=== PATIENT | female | born 1970 | race Hispanic/Latino ===

== ENCOUNTER 2021-06-17 11:04 | Emergency (ER) | payer SELFPAY ==
[~2021-06-17] VITALS: Ht 152.4 cm; Wt 127.0 kg
[2021-06-17 11:09] VITALS: BP 157/100
[2021-06-17] MEDS ORDERED: POLY10DR22 OU (11:26)
== END 2021-06-17 11:35 | disposition home or self-care (01) ==
LOC: EDH 11:04
DX: H10.9 Unspecified conjunctivitis (principal)

== ENCOUNTER 2022-01-02 17:07 | Emergency (ER) | payer OTHER ==
[~2022-01-02 17:07] MED LIST: BISA5TAB12 PO; DOCU100T PO; LACT10SO9 PO; MULT-685 PO; Midodrine Hcl PO; POLY17PO4 PO; PROM25TA7 PO; SENN8.6T32 PO
[2022-01-02 18:34] LABS: BASOPHILS % (AUTO) 0.5 % (0.0-5.0); EOSINOPHILS % (AUTO) 2.3 % (0.0-8.0); HEMATOCRIT 31.7 % (36-48); LYMPHOCYTES % (AUTO) 20.4 % (21.0-51.0); MEAN CORPUSCULAR HEMOGLOBIN 27.1 pg (27.0-33.0); MEAN CORPUSCULAR HGB CONC 31.2 g/dL (32.0-36.0); MEAN CORPUSCULAR VOLUME 86.8 fL (79-99); MONOCYTES % (AUTO) 3.5 % (3.0-13.0); NEUTROPHILS % (AUTO) 72.6 % (40.0-77.0); PLATELET COUNT (AUTO) 331 K/uL (130-400); RED BLOOD CELL COUNT(AUTO) 3.65 MIL/uL (4.00-5.50); RED CELL DISTRIBUTION WIDTH 16.4 % (11.0-15.5); WHITE BLOOD COUNT (AUTO) 11.7 K/uL (4.8-10.8)
[2022-01-02 18:53] LABS: CREATININE 5.7 mg/dL (0.5-1.5); POTASSIUM 3.6 mmol/L (3.5-5.1)
[2022-01-02 19:03] LABS: ALBUMIN 2.8 g/dL (3.5-5.0); BILIRUBIN,TOTAL 0.3 mg/dL (0.2-1.0); TOTAL PROTEIN, SERUM 7.2 g/dL (6.0-8.3)
[2022-01-02 19:35] VITALS: BP 18/72
[2022-01-02] MEDS ORDERED: DOXY-336 PO (19:43)
== END 2022-01-02 20:39 | disposition home or self-care (01) ==
LOC: EDH 17:07
DX: J18.9 Pneumonia, unspecified organism (principal); E87.70 Fluid overload, unspecified; I12.0 Hypertensive chronic kidney disease with stage 5 chronic kidney disease or end stage renal disease; N18.6 End stage renal disease; Z20.822 Contact with and (suspected) exposure to COVID-19; Z99.2 Dependence on renal dialysis
CPT/HCPCS: 36415; 71045; 80053; 83880; 84484; 85025; 87635; 93005; 99285; C9803

== ENCOUNTER 2022-12-16 09:33 | Emergency (ER) | payer MEDICAID, OTHER ==
[~2022-12-16] VITALS: Ht 157.5 cm; Wt 119.3 kg
[~2022-12-16 09:33] MED LIST changes: +BISA-151 PO; -BISA5TAB12 PO; +DOXY-469 PO
[2022-12-16] MEDS ORDERED: CEFTRIAXONE 1G VIAL IVPB ONE (10:00)
[2022-12-16] MEDS ORDERED: SOLU-MEDROL 125MG VIAL IVP ONE (10:00)
[2022-12-16] MEDS ORDERED: ALBUTEROL 0.083% 2.5 MG/3 ML INH IH ONE (10:00)
[2022-12-16] MEDS ORDERED: IPRATROPIUM 0.5 MG/2.5 ML INH IH ONE (10:00)
[2022-12-16 10:10] LABS: BASOPHILS % (AUTO) 0.7 % (0.0-5.0); EOSINOPHILS % (AUTO) 6.8 % (0.0-8.0); HEMATOCRIT 44.9 % (36-48); LYMPHOCYTES % (AUTO) 24.2 % (21.0-51.0); MEAN CORPUSCULAR HEMOGLOBIN 28.4 pg (27.0-33.0); MEAN CORPUSCULAR HGB CONC 32.5 g/dL (32.0-36.0); MEAN CORPUSCULAR VOLUME 87.4 fL (79-99); MONOCYTES % (AUTO) 7.1 % (3.0-13.0); NEUTROPHILS % (AUTO) 60.6 % (40.0-77.0); PLATELET COUNT (AUTO) 326 K/uL (130-400); RED BLOOD CELL COUNT(AUTO) 5.14 MIL/uL (4.00-5.50); RED CELL DISTRIBUTION WIDTH 13.7 % (11.0-15.5); WHITE BLOOD COUNT (AUTO) 8.7 K/uL (4.8-10.8)
[2022-12-16 10:38] LABS: ALBUMIN 3.3 g/dL (3.5-5.0); CREATININE 1.5 mg/dL (0.5-1.5); POTASSIUM 3.8 mmol/L (3.5-5.1); TOTAL PROTEIN, SERUM 7.7 g/dL (6.0-8.3)
[2022-12-16] MEDS ORDERED: AZIT250T9 PO (11:14)
[2022-12-16] MEDS ORDERED: PRED50TA2 PO (11:14)
[2022-12-16] MEDS ORDERED: AUD IH (11:14)
[2022-12-16] MEDS ORDERED: ALBUHFA IH (11:14)
[2022-12-16] MEDS ORDERED: [UNRECOGNIZED DRUG - CODE] MC (11:14)
[2022-12-16] MEDS ORDERED: LEVO750T68 PO (11:14)
[2022-12-16 11:33] VITALS: BP 144/86
== END 2022-12-16 11:42 | disposition home or self-care (01) ==
LOC: EDH 09:33
DX: J18.9 Pneumonia, unspecified organism (principal); J40 Bronchitis, not specified as acute or chronic; I10 Essential (primary) hypertension; Z98.890 Other specified postprocedural states; Z79.899 Other long term (current) drug therapy; Z90.5 Acquired absence of kidney
CPT/HCPCS: 99284; 96365; 71045; 96375; 80053; 85025; 87040 ×2; 83605; 36415; 94640; J2930; J0696

== ENCOUNTER 2022-12-30 10:50 | Observation (INO) | payer OTHER ==
[~2022-12-30] VITALS: Ht 152.4 cm; Wt 119.3 kg
[~2022-12-30 10:50] MED LIST changes: +ALBUHFA IH; +AUD IH; +AZIT250T9 PO; +LEVO750T68 PO; +PRED50TA2 PO; +[UNRECOGNIZED DRUG - CODE] MC
[2022-12-30] MEDS ORDERED: ACETAMINOPHEN 500 MG TABLET PO ONE (11:30)
[2022-12-30 12:35] LABS: BASOPHILS % (AUTO) 0.6 % (0.0-5.0); EOSINOPHILS % (AUTO) 4.6 % (0.0-8.0); HEMATOCRIT 44.5 % (36-48); LYMPHOCYTES % (AUTO) 20.6 % (21.0-51.0); MEAN CORPUSCULAR HEMOGLOBIN 29.1 pg (27.0-33.0); MEAN CORPUSCULAR HGB CONC 32.1 g/dL (32.0-36.0); MEAN CORPUSCULAR VOLUME 90.4 fL (79-99); MONOCYTES % (AUTO) 6.5 % (3.0-13.0); NEUTROPHILS % (AUTO) 67.3 % (40.0-77.0); PLATELET COUNT (AUTO) 306 K/uL (130-400); RED BLOOD CELL COUNT(AUTO) 4.92 MIL/uL (4.00-5.50); RED CELL DISTRIBUTION WIDTH 13.4 % (11.0-15.5); WHITE BLOOD COUNT (AUTO) 9.3 K/uL (4.8-10.8)
[2022-12-30 12:51] LABS: CREATININE 1.6 mg/dL (0.5-1.5); POTASSIUM 4.1 mmol/L (3.5-5.1)
[2022-12-30 12:56] LABS: ALBUMIN 3.2 g/dL (3.5-5.0); TOTAL PROTEIN, SERUM 7.4 g/dL (6.0-8.3)
[2022-12-30] MEDS ORDERED: 0.9%NACL 1000ML 2,000 ML IV ONE (13:30)
[2022-12-30] MEDS ORDERED: ONDANSETRON 4MG INJ IV PRN (14:00)
[2022-12-30] MEDS ORDERED: 0.9%NACL 1000ML 1,000 ML IV SCH (14:00)
[2022-12-30] MEDS ORDERED: ACETAMINOPHEN 325 MG TAB PO PRN ×2 (14:00)
[2022-12-30] MEDS ORDERED: HEPARIN 5,000 UNIT VIAL SQ SCH (14:00)
[2022-12-30] MEDS ORDERED: PROC5TAB12 PO (14:18)
[2022-12-30] MEDS ORDERED: ACET-2247 PO (14:18)
[2022-12-30] MEDS ORDERED: DIPH-1185 PO (14:18)
[2022-12-30 14:35] LABS: ALBUMIN 3.3 g/dL (3.5-5.0); CREATININE 1.6 mg/dL (0.5-1.5); POTASSIUM 4.4 mmol/L (3.5-5.1); TOTAL PROTEIN, SERUM 7.5 g/dL (6.0-8.3)
[2022-12-30 14:36] VITALS: BP 146/86
[2022-12-30] MEDS ORDERED: FAMOTIDINE 20MG TAB PO SCH (21:00)
== END 2022-12-30 16:41 | disposition home or self-care (01) ==
LOC: EDH 10:50 → EDHIP 10:51
PROVIDERS: ADMIT Hospitalist; ATTEND Hospitalist
DX: N17.9 Acute kidney failure, unspecified (principal); I13.0 Hypertensive heart and chronic kidney disease with heart failure and stage 1 through stage 4 chronic kidney disease, or unspecified chronic kidney disease; I50.32 Chronic diastolic (congestive) heart failure; N18.9 Chronic kidney disease, unspecified; G43.909 Migraine, unspecified, not intractable, without status migrainosus; J84.10 Pulmonary fibrosis, unspecified; Z90.5 Acquired absence of kidney; Z79.899 Other long term (current) drug therapy
CPT/HCPCS: 99284; 80053 ×2; 85025; 83605; 36415; 71045; 70450; G0378 ×3

== ENCOUNTER 2023-03-05 10:38 | Emergency (ER) | payer OTHER ==
[~2023-03-05] VITALS: Ht 154.9 cm; Wt 75.7 kg
[~2023-03-05 10:38] MED LIST changes: +ACET-2247 PO; -ALBUHFA IH; -AUD IH; -AZIT250T9 PO; -BISA-151 PO; +DIPH-1185 PO; -DOCU100T PO; -DOXY-469 PO; -LACT10SO9 PO; -LEVO750T68 PO; -MULT-685 PO; -Midodrine Hcl PO; -POLY17PO4 PO; -PRED50TA2 PO; +PROC5TAB12 PO; -PROM25TA7 PO; -SENN8.6T32 PO
[2023-03-05 10:57] VITALS: BP 164/96; PULSE 70; RESP 24
[2023-03-05 13:18] LABS: BASOPHILS # (AUTO) 0.07 K/uL (0.00-0.20); BASOPHILS % (AUTO) 0.7 % (0.0-5.0); EOSINOPHILS # (AUTO) 0.47 K/uL (0.00-0.70); EOSINOPHILS % (AUTO) 4.6 % (0.0-8.0); HEMATOCRIT 47.9 % (36-48); IMMATURE GRANULOCYTE ABSOLUTE 0.04 K/uL (0-1); LYMPHOCYTES # (AUTO) 2.4 K/uL (1.0-4.8); LYMPHOCYTES % (AUTO) 23.2 % (21.0-51.0); MEAN CORPUSCULAR HEMOGLOBIN 28.4 pg (27.0-33.0); MEAN CORPUSCULAR HGB CONC 32.6 g/dL (32.0-36.0); MEAN CORPUSCULAR VOLUME 87.2 fL (79-99); MONOCYTES # (AUTO) 0.7 K/uL (0.1-1.0); MONOCYTES % (AUTO) 6.5 % (3.0-13.0); NEUTROPHILS # (AUTO) 6.5 K/uL (1.8-7.7); NEUTROPHILS % (AUTO) 64.6 % (40.0-77.0); PLATELET COUNT (AUTO) 325 K/uL (130-400); RED BLOOD CELL COUNT(AUTO) 5.49 MIL/uL (4.00-5.50); RED CELL DISTRIBUTION WIDTH 12.5 % (11.0-15.5); WHITE BLOOD COUNT (AUTO) 10.1 K/uL (4.8-10.8)
[2023-03-05 13:27] LABS: CREATININE 1.8 mg/dL (0.5-1.5); POTASSIUM 3.9 mmol/L (3.5-5.1)
[2023-03-05 13:31] LABS: ALBUMIN 3.6 g/dL (3.5-5.0); BILIRUBIN,TOTAL 0.4 mg/dL (0.2-1.0); TOTAL PROTEIN, SERUM 8.2 g/dL (6.0-8.3)
[2023-03-05 14:55] LABS: APPEARANCE,URINE CLEAR (CLEAR); BILIRUBIN,URINE NEGATIVE (NEGATIVE); COLOR,URINE LIGHT-YELLOW (YELLOW); GLUCOSE, URINE (UA) NEGATIVE (NEGATIVE); KETONES,URINE NEGATIVE (NEGATIVE); LEUKOCYTE ESTERASE ,URINE 250 Leu/uL (NEGATIVE); NITRATE,URINE NEGATIVE (NEGATIVE); PROTEIN,URINE 300 mg/dL (NEGATIVE); UROBILINOGEN,URINE 0.2 mg/dL (0.2-1.0)
[2023-03-05 14:56] LABS: ADD UA MICROSCOPIC YES
[2023-03-05 15:04] LABS: BACTERIA,URINE RARE /HPF (None Seen); MUCUS,URINE RARE LPF (None Seen); SQUAMOUS EPITHELIAL CELL,UR FEW /HPF (0-2)
[2023-03-05] MEDS ORDERED: CEPH500B PO (17:32)
== END 2023-03-05 21:24 | disposition home or self-care (01) ==
LOC: EDH 10:38
DX: N39.0 Urinary tract infection, site not specified (principal); I10 Essential (primary) hypertension; J45.909 Unspecified asthma, uncomplicated; J84.10 Pulmonary fibrosis, unspecified; Z90.5 Acquired absence of kidney; Z79.899 Other long term (current) drug therapy; Z98.890 Other specified postprocedural states
CPT/HCPCS: 36415; 71045; 80053; 81001; 83605; 84484; 85025; 87088; 93005

== ENCOUNTER 2023-08-08 15:41 | Emergency (ER) | payer OTHER ==
[~2023-08-08] VITALS: Ht 152.4 cm; Wt 117.5 kg
[~2023-08-08 15:41] MED LIST changes: +CEPH500B PO
[2023-08-08 15:52] VITALS: PULSE 71; RESP 24
[2023-08-08] MEDS ORDERED: ALBUTEROL 0.083% 2.5 MG/3 ML INH IH ONE (16:00)
[2023-08-08 16:15] LABS: BASOPHILS # (AUTO) 0.06 K/uL (0.00-0.20); BASOPHILS % (AUTO) 0.6 % (0.0-5.0); EOSINOPHILS # (AUTO) 0.52 K/uL (0.00-0.70); EOSINOPHILS % (AUTO) 4.9 % (0.0-8.0); HEMATOCRIT 40.6 % (36-48); IMMATURE GRANULOCYTE ABSOLUTE 0.04 K/uL (0-1); LYMPHOCYTES # (AUTO) 2.1 K/uL (1.0-4.8); LYMPHOCYTES % (AUTO) 20.1 % (21.0-51.0); MEAN CORPUSCULAR HEMOGLOBIN 28.4 pg (27.0-33.0); MEAN CORPUSCULAR HGB CONC 33.7 g/dL (32.0-36.0); MEAN CORPUSCULAR VOLUME 84.2 fL (79-99); MONOCYTES # (AUTO) 0.7 K/uL (0.1-1.0); MONOCYTES % (AUTO) 6.5 % (3.0-13.0); NEUTROPHILS # (AUTO) 7.2 K/uL (1.8-7.7); NEUTROPHILS % (AUTO) 67.5 % (40.0-77.0); PLATELET COUNT (AUTO) 331 K/uL (130-400); RED BLOOD CELL COUNT(AUTO) 4.82 MIL/uL (4.00-5.50); RED CELL DISTRIBUTION WIDTH 13.2 % (11.0-15.5); WHITE BLOOD COUNT (AUTO) 10.6 K/uL (4.8-10.8)
[2023-08-08 16:32] LABS: CREATININE 1.9 mg/dL (0.5-1.5); POTASSIUM 4.2 mmol/L (3.5-5.1)
[2023-08-08 16:43] LABS: ALBUMIN 3.1 g/dL (3.5-5.0); BILIRUBIN,TOTAL 0.3 mg/dL (0.2-1.0); MAGNESIUM 2.1 mg/dL (1.80-2.40); TOTAL PROTEIN, SERUM 7.8 g/dL (6.0-8.3)
[2023-08-08 16:53] LABS: B-TYPE NATRIURETIC PEPTIDE 84 pg/mL (0-100)
[2023-08-08] MEDS ORDERED: SOLU-MEDROL 125MG VIAL IVP ONE (17:00)
[2023-08-08] MEDS ORDERED: IPRATROPIUM/ALBUTEROL SULFATE 3 ML SOLUTION IH ONE (18:30)
[2023-08-08 18:50] VITALS: PULSE 69; RESP 18
[2023-08-08] MEDS ORDERED: GUAI5LIQ13 PO (19:24)
[2023-08-08] MEDS ORDERED: ALBUHFA IH (19:24)
[2023-08-08] MEDS ORDERED: AMOX1TAB16 PO (19:24)
[2023-08-08] MEDS ORDERED: NEBU-305 MC (19:24)
[2023-08-08] MEDS ORDERED: BUDE10.2 IH (19:24)
[2023-08-08] MEDS ORDERED: PRED20TA3 PO (19:24)
[2023-08-08] MEDS ORDERED: AUD IH (19:24)
[2023-08-08 20:43] VITALS: BP 148/76; PULSE 78; RESP 19; O2SAT 97
== END 2023-08-08 20:46 | disposition home or self-care (01) ==
LOC: EDH 15:41
DX: J84.112 Idiopathic pulmonary fibrosis (principal); I10 Essential (primary) hypertension; Z79.899 Other long term (current) drug therapy; Z98.890 Other specified postprocedural states
CPT/HCPCS: 99285; 96374; 71045; 83735; 84484; 80053; 83880; 85025; 36415; 93005; 94640 ×2; J2930

== ENCOUNTER 2024-02-02 08:55 | Inpatient (IN) | payer OTHER ==
[2024-02-02] VITALS (7 sets, daily range): BP systolic 143; BP diastolic 62; PULSE 62–82; RESP 16–26; O2SAT 95–99
[~2024-02-02] VITALS: Ht 160 cm; Wt 117.9 kg
[~2024-02-02 08:55] MED LIST changes: -ACET-2247 PO; +AUD IH; +BUDE10.2 IH; -CEPH500B PO; +GUAI5LIQ13 PO; +NEBU-305 MC; +PRED20TA3 PO; -[UNRECOGNIZED DRUG - CODE] MC
[2024-02-02 09:21] LABS: ABG BASE EXCESS -3.2 mmol/L (-2.0-3.0); ABG HCO3 21.3 mmol/L (21.0-28.0); ABG PCO2 37 mmHg (32-45); ABG PH 7.379 (7.35-7.450); DEVICE COMMENT VERO RN LB; PO2, ARTERIAL BG 75.8 mmHg (83.0-108.0); VENT MODE, BG RA (ROOM AIR)
[2024-02-02] MEDS: IPRATROPIUM/ALBUTEROL SULFATE 3 ML SOLUTION IH ONE ×2 (09:24→09:30)
[2024-02-02] MEDS: SOLU-MEDROL 125MG VIAL IVP ONE (09:28)
[2024-02-02 09:39] LABS: BASOPHILS # (AUTO) 0.05 K/uL (0.00-0.20); BASOPHILS % (AUTO) 0.5 % (0.0-5.0); EOSINOPHILS # (AUTO) 0.49 K/uL (0.00-0.70); EOSINOPHILS % (AUTO) 4.9 % (0.0-8.0); HEMATOCRIT 42.1 % (36-48); IMMATURE GRANULOCYTE ABSOLUTE 0.05 K/uL (0-1); LYMPHOCYTES % (AUTO) 20.2 % (21.0-51.0); MEAN CORPUSCULAR HEMOGLOBIN 27.7 pg (27.0-33.0); MEAN CORPUSCULAR HGB CONC 32.1 g/dL (32.0-36.0); MEAN CORPUSCULAR VOLUME 86.4 fL (79-99); MONOCYTES # (AUTO) 0.6 K/uL (0.1-1.0); MONOCYTES % (AUTO) 6.1 % (3.0-13.0); NEUTROPHILS # (AUTO) 6.8 K/uL (1.8-7.7); NEUTROPHILS % (AUTO) 67.8 % (40.0-77.0); PLATELET COUNT (AUTO) 322 K/uL (130-400); RED BLOOD CELL COUNT(AUTO) 4.87 MIL/uL (4.00-5.50); RED CELL DISTRIBUTION WIDTH 12.9 % (11.0-15.5)
[2024-02-02 09:42] LABS: CREATININE 1.9 mg/dL (0.5-1.0); POTASSIUM 3.9 mmol/L (3.5-5.1)
[2024-02-02 10:06] LABS: SARS-CoV-2, RNA, NAAT NEGATIVE SARS CoV-2 (NEGATIVE)
[2024-02-02 10:11] LABS: INFLUENZA TYPE A Negative For Type A (NEGATIVE); INFLUENZA TYPE B Negative For Type B (NEGATIVE)
[2024-02-02 10:17] LABS: B-TYPE NATRIURETIC PEPTIDE 59 pg/mL (0-100)
[2024-02-02] MEDS: ALBUTEROL 0.083% 2.5 MG/3 ML INH IH ONE (12:18)
[2024-02-02] MEDS ORDERED: IPRATROPIUM/ALBUTEROL SULFATE 3 ML SOLUTION IH PRN (12:30)
[2024-02-02] MEDS ORDERED: ACETAMINOPHEN 325 MG TAB PO PRN (12:30)
[2024-02-02] MEDS ORDERED: ONDANSETRON 4MG INJ IVP PRN (12:30)
[2024-02-02] MEDS: SOLU-MEDROL 40MG VIAL IVP SCH (13:03)
[2024-02-02] MEDS: AZITHROMYCIN 500MG+NS 250ML 250 ML IVPB SCH (13:04)
[2024-02-02] MEDS ORDERED: ZOSYN 3.375GM +NS 50ML IV SCH (15:00)
[2024-02-02] MEDS: RACEPINEPHRINE HCL 2.25% 0.5 ML NEB SOLN ONE (15:20)
[2024-02-02] MEDS: RACEPINEPHRINE HCL 2.25% 0.5 ML NEB SOLN NEB SCH (15:30)
[2024-02-02] MEDS ORDERED: POTASSIUM CHLORIDE 10MEQ/100ML 100 ML IV PRN ×2 (17:00)
[2024-02-02] MEDS ORDERED: KCL 20 MEQ ERTAB PO PRN (17:00)
[2024-02-02] MEDS ORDERED: POTASSIUM CHLORIDE 10% ELIXIR 20 MEQ/15 ML UDCUP PO PRN (17:00)
[2024-02-02] MEDS ORDERED: FOLI0.8T22 PO (17:42)
[2024-02-02] MEDS ORDERED: TORS10TA18 PO (17:42)
[2024-02-02] MEDS: BUDESONIDE 0.5 MG/2 ML INH IH SCH (20:39)
[2024-02-02] MEDS: ALBUTEROL 0.083% 2.5 MG/3 ML INH IH SCH (20:39)
[2024-02-03] VITALS (14 sets, daily range): BP systolic 124–144; BP diastolic 62–76; PULSE 63–90; RESP 18–21; O2SAT 95–100
[2024-02-03 03:17] LABS: ABG BASE EXCESS -3.1 mmol/L (-2.0-3.0); ABG HCO3 22.2 mmol/L (21.0-28.0); ABG OXYGEN SATURATION 95.9 % (95.0-99.0); ABG PCO2 41 mmHg (32-45); ABG PH 7.355 (7.35-7.450); DEVICE COMMENT RA; VENT MODE, BG LR RA (ROOM AIR)
[2024-02-03 04:45] LABS: BASOPHILS # (AUTO) 0.01 K/uL (0.00-0.20); BASOPHILS % (AUTO) 0.1 % (0.0-5.0); HEMATOCRIT 39.5 % (36-48); IMMATURE GRANULOCYTE ABSOLUTE 0.06 K/uL (0-1); LYMPHOCYTES # (AUTO) 0.7 K/uL (1.0-4.8); MEAN CORPUSCULAR HEMOGLOBIN 28.2 pg (27.0-33.0); MEAN CORPUSCULAR HGB CONC 32.4 g/dL (32.0-36.0); MONOCYTES # (AUTO) 0.1 K/uL (0.1-1.0); NEUTROPHILS # (AUTO) 12.1 K/uL (1.8-7.7); NEUTROPHILS % (AUTO) 93.4 % (40.0-77.0); PLATELET COUNT (AUTO) 319 K/uL (130-400); RED BLOOD CELL COUNT(AUTO) 4.54 MIL/uL (4.00-5.50); WHITE BLOOD COUNT (AUTO) 12.9 K/uL (4.8-10.8)
[2024-02-03 05:09] LABS: ALBUMIN 3.1 g/dL (3.5-5.0); BILIRUBIN,TOTAL 0.3 mg/dL (0.2-1.0); CREATININE 2.1 mg/dL (0.5-1.0); POTASSIUM 4.4 mmol/L (3.5-5.1)
[2024-02-03 06:09] LABS: WBC MORPHOLOGY CONSISTENT W/DIFF
[2024-02-03] MEDS: CEFEPIME HCL 2 GM VIAL IVPB SCH (13:00)
[2024-02-04] VITALS (15 sets, daily range): BP systolic 124–151; BP diastolic 62–99; PULSE 58–74; RESP 17–22; O2SAT 94–99
[2024-02-04 05:23] LABS: BASOPHILS # (AUTO) 0.02 K/uL (0.00-0.20); BASOPHILS % (AUTO) 0.1 % (0.0-5.0); HEMATOCRIT 40.7 % (36-48); IMMATURE GRANULOCYTE ABSOLUTE 0.18 K/uL (0-1); LYMPHOCYTES # (AUTO) 0.9 K/uL (1.0-4.8); LYMPHOCYTES % (AUTO) 4.8 % (21.0-51.0); MEAN CORPUSCULAR HEMOGLOBIN 28.4 pg (27.0-33.0); MEAN CORPUSCULAR HGB CONC 32.4 g/dL (32.0-36.0); MEAN CORPUSCULAR VOLUME 87.7 fL (79-99); MONOCYTES # (AUTO) 0.2 K/uL (0.1-1.0); MONOCYTES % (AUTO) 1.2 % (3.0-13.0); NEUTROPHILS # (AUTO) 17.2 K/uL (1.8-7.7); NEUTROPHILS % (AUTO) 92.9 % (40.0-77.0); PLATELET COUNT (AUTO) 336 K/uL (130-400); RED BLOOD CELL COUNT(AUTO) 4.64 MIL/uL (4.00-5.50); RED CELL DISTRIBUTION WIDTH 13.1 % (11.0-15.5); WHITE BLOOD COUNT (AUTO) 18.5 K/uL (4.8-10.8)
[2024-02-04 05:39] LABS: ALBUMIN 2.9 g/dL (3.5-5.0); BILIRUBIN,TOTAL 0.2 mg/dL (0.2-1.0); MAGNESIUM 1.9 mg/dL (1.80-2.40); POTASSIUM 4.6 mmol/L (3.5-5.1); TOTAL PROTEIN, SERUM 6.8 g/dL (6.0-8.3)
[2024-02-04] MEDS: CEFEPIME HCL 2 GM VIAL IVPB SCH (09:30)
[2024-02-04] MEDS: MAGNESIUM 2GM PREMIX 50ML 50 ML IV PRN (17:51)
[2024-02-05] VITALS (13 sets, daily range): BP systolic 130–160; BP diastolic 73–96; PULSE 58–72; RESP 18–20; O2SAT 96–97
[2024-02-05] MEDS: LABETALOL 20MG SYG IV ONE (11:00)
[2024-02-05] MEDS ORDERED: POTASSIUM CHLORIDE 10MEQ SR TAB PO PRN (12:30)
[2024-02-06] VITALS (8 sets, daily range): BP systolic 129–151; BP diastolic 57–77; PULSE 20–68; RESP 17–20; O2SAT 65–98
[2024-02-06] MEDS: PREDNISONE 20 MG TABLET PO SCH (07:55)
[2024-02-06] MEDS: TORSEMIDE 20 MG TAB PO SCH (07:55)
[2024-02-06] MEDS: Vitamin B Complex/Vit C/Folic Acid PO SCH (07:55)
[2024-02-06] MEDS ORDERED: NON-FORMULARY MEDICATION 1 EACH (Torsemide 10 MG) PO SCH (09:00)
[2024-02-06] MEDS ORDERED: NON-FORMULARY MEDICATION 1 EACH (Folic Acid/Vitamin B Comp W-C (Rena-Vite Tablet) 0.8 MG) PO SCH (09:00)
[2024-02-06] MEDS ORDERED: FOLI0.8T22 PO (13:50)
[2024-02-06] MEDS ORDERED: AZIT500T4 PO (13:50)
[2024-02-06] MEDS ORDERED: PRED20B PO (13:50)
[2024-02-06] MEDS ORDERED: TORS10TA18 PO (13:50)
[2024-02-06] MEDS ORDERED: AUD IH (13:50)
[2024-02-06] MEDS ORDERED: BUDE0.5A3 IH (13:50)
== END 2024-02-06 14:50 | disposition home or self-care (01) | DRG 189 ==
LOC: EDH 08:55 → EDHIP 08:56 → 4CH 18:40
PROVIDERS: ADMIT Hospitalist; ATTEND Hospitalist
DX: J96.21 Acute and chronic respiratory failure with hypoxia (principal); N17.9 Acute kidney failure, unspecified; Z68.43 Body mass index [BMI] 50.0-59.9, adult; J45.901 Unspecified asthma with (acute) exacerbation; Z20.822 Contact with and (suspected) exposure to COVID-19; E66.01 Morbid (severe) obesity due to excess calories; J03.90 Acute tonsillitis, unspecified; N18.9 Chronic kidney disease, unspecified; I12.9 Hypertensive chronic kidney disease with stage 1 through stage 4 chronic kidney disease, or unspecified chronic kidney disease; J84.112 Idiopathic pulmonary fibrosis; Z90.5 Acquired absence of kidney; Z93.0 Tracheostomy status
CPT/HCPCS: 36415; 36600; 70490; 71045; 71250; 80048; 80053; 82803; 82948; 83735; 83880; 84145; 84484; 85025; 87635; 87804; 87880; 94640; 94664; 99291; G0378; J0456; J0692; J2919; J3475; G8980-CI; G8983-CI

== ENCOUNTER 2024-04-27 08:14 | Inpatient (IN) | payer SELFPAY ==
[~2024-04-27] VITALS: Ht 154.9 cm; Wt 118.5 kg
[2024-04-27] VITALS (11 sets, daily range): BP systolic 150–166; BP diastolic 74–90; PULSE 67–77; RESP 18–21; TEMP 98.1–98.4; O2SAT 97–99
[~2024-04-27 08:14] MED LIST changes: +AZIT500T4 PO; +BUDE0.5A3 IH; -BUDE10.2 IH; -DIPH-1185 PO; +FOLI0.8T22 PO; -GUAI5LIQ13 PO; -NEBU-305 MC; +PRED20B PO; -PRED20TA3 PO; -PROC5TAB12 PO; +TORS10TA18 PO
[2024-04-27 08:35] LABS: BASOPHILS # (AUTO) 0.05 K/uL (0.00-0.20); BASOPHILS % (AUTO) 0.5 % (0.0-5.0); EOSINOPHILS # (AUTO) 0.52 K/uL (0.00-0.70); EOSINOPHILS % (AUTO) 5.6 % (0.0-8.0); HEMATOCRIT 44.4 % (36-48); IMMATURE GRANULOCYTE ABSOLUTE 0.06 K/uL (0-1); LYMPHOCYTES # (AUTO) 2.2 K/uL (1.0-4.8); LYMPHOCYTES % (AUTO) 23.8 % (21.0-51.0); MEAN CORPUSCULAR HGB CONC 32.4 g/dL (32.0-36.0); MEAN CORPUSCULAR VOLUME 86.2 fL (79-99); MONOCYTES # (AUTO) 0.6 K/uL (0.1-1.0); MONOCYTES % (AUTO) 6.8 % (3.0-13.0); NEUTROPHILS # (AUTO) 5.9 K/uL (1.8-7.7); NEUTROPHILS % (AUTO) 62.7 % (40.0-77.0); PLATELET COUNT (AUTO) 330 K/uL (130-400); RED BLOOD CELL COUNT(AUTO) 5.15 MIL/uL (4.00-5.50); RED CELL DISTRIBUTION WIDTH 12.5 % (11.0-15.5); WHITE BLOOD COUNT (AUTO) 9.3 K/uL (4.8-10.8)
[2024-04-27] MEDS: Solu-medROL 125MG VIAL IVP ONE (08:47)
[2024-04-27 08:49] LABS: CREATININE 2.1 mg/dL (0.5-1.0); POTASSIUM 4.2 mmol/L (3.5-5.1)
[2024-04-27] MEDS: IpraTROPium/alBUTERol SULFATE 3 ML SOLUTION IH ONE ×2 (08:53→09:51)
[2024-04-27] MEDS: RACEPINEPHRINE HCL 2.25% 0.5 ML NEB SOLN NEB SCH (08:54)
[2024-04-27 09:02] LABS: SARS-CoV-2, RNA, NAAT NEGATIVE SARS CoV-2 (NEGATIVE)
[2024-04-27 09:08] LABS: B-TYPE NATRIURETIC PEPTIDE 52 pg/mL (0-100)
[2024-04-27 09:08] LABS: INFLUENZA TYPE A Negative For Type A (NEGATIVE); INFLUENZA TYPE B Negative For Type B (NEGATIVE)
[2024-04-27 09:14] LABS: ABG BASE EXCESS -3.6 mmol/L (-2.0-3.0); ABG HCO3 21.5 mmol/L (21.0-28.0); ABG OXYGEN SATURATION 96.5 % (94.0-98.0); ABG PCO2 39 mmHg (32-45); ABG PH 7.358 (7.350-7.450); CARBON MONOXIDE 0.4 % (0.5-1.5); HHb 3.5; PO2, ARTERIAL BG 85.3 mmHg (83.0-108.0); VENT MODE, BG NC (ROOM AIR)
[2024-04-27 10:19] LABS: APPEARANCE,URINE CLEAR (CLEAR); BILIRUBIN,URINE NEGATIVE (NEGATIVE); COLOR,URINE LIGHT-YELLOW (YELLOW); GLUCOSE, URINE (UA) NEGATIVE (NEGATIVE); KETONES,URINE NEGATIVE (NEGATIVE); LEUKOCYTE ESTERASE ,URINE NEGATIVE Leu/uL (NEGATIVE); NITRATE,URINE NEGATIVE (NEGATIVE); OCCULT BLOOD,URINE SMALL (NEGATIVE); PROTEIN,URINE 200 mg/dL (NEGATIVE); UROBILINOGEN,URINE 0.2 mg/dL (0.2-1.0)
[2024-04-27 10:23] LABS: ADD UA MICROSCOPIC YES
[2024-04-27 10:32] LABS: BACTERIA,URINE Rare /HPF (None Seen); RBC,URINE 0-1 /HPF (0-1); SQUAMOUS EPITHELIAL CELL,UR 0-2 /HPF (0-2); WBC,URINE 0-1 /HPF (0-1)
[2024-04-27] MEDS: AZITHROMYCIN 500MG+NS 250ML 250 ML IVPB SCH (10:59)
[2024-04-27] MEDS: cefTRIAXone 1G VIAL IVPB ONE (10:59)
[2024-04-27] MEDS ORDERED: Solu-medROL 40MG VIAL IVP SCH ×2 (11:30→16:30)
[2024-04-27] MEDS ORDERED: guaiFENesin-DM 200/20MG 10ML PO PRN (11:30)
[2024-04-27] MEDS ORDERED: PoTASSium chloRIDE 20MEQ ER 20 MEQ ERTAB PO PRN (11:30)
[2024-04-27] MEDS ORDERED: morPHINE 2 MG SYG IVP PRN (11:30)
[2024-04-27] MEDS ORDERED: PoTASSium chl 10% ELIXIR 20MEQ 20 MEQ/15 ML UDCUP PO PRN (11:30)
[2024-04-27] MEDS ORDERED: MAGNESIUM 2GM PREMIX 50ML 50 ML IV PRN (11:30)
[2024-04-27] MEDS ORDERED: GLUCAGON 1MG KIT 1 MG ML IM PRN (11:30)
[2024-04-27] MEDS ORDERED: hydrALAZine 20MG/ML VIAL IV PRN (11:30)
[2024-04-27] MEDS ORDERED: DEXTROSE 50%-WATER 50 ML DISP.SYRIN IV PRN (11:30)
[2024-04-27] MEDS ORDERED: NITROGLYCERIN 0.4 MG SL TAB SL PRN (11:30)
[2024-04-27] MEDS ORDERED: FAMOTIDINE 20MG VIAL IV PRN (11:30)
[2024-04-27] MEDS ORDERED: acetaMINOPHEN 325 MG TAB PO PRN (11:30)
[2024-04-27] MEDS: INSULIN humuLIN R 100 UNIT/ML 3ML SQ SCH (11:30)
[2024-04-27] MEDS ORDERED: acetaMINOPHEN WITH coDEINE 1 TAB TAB PO PRN (11:30)
[2024-04-27] MEDS ORDERED: PoTASSium chloRIDE 20MEQ/100ML 100 ML IV PRN (11:30)
[2024-04-27] MEDS ORDERED: ondanSETRON 4MG INJ IV PRN (11:30)
[2024-04-27] MEDS: IpraTROPium/alBUTERol SULFATE 3 ML SOLUTION IH SCH (12:18)
[2024-04-27] MEDS ORDERED: ALBUTEROL 0.083% 2.5 MG/3 ML INH IH SCH (14:00)
[2024-04-27] MEDS: Solu-medROL 125MG VIAL IVP SCH (17:14)
[2024-04-27] MEDS ORDERED: FOLI0.8T22 PO (19:20)
[2024-04-28] VITALS (19 sets, daily range): BP systolic 125–161; BP diastolic 66–84; PULSE 61–82; RESP 16–24; TEMP 97.9–98.9; O2SAT 90–99
[2024-04-28 04:44] LABS: BASOPHILS # (AUTO) 0.01 K/uL (0.00-0.20); BASOPHILS % (AUTO) 0.1 % (0.0-5.0); HEMATOCRIT 40.3 % (36-48); LYMPHOCYTES # (AUTO) 0.8 K/uL (1.0-4.8); LYMPHOCYTES % (AUTO) 6.5 % (21.0-51.0); MEAN CORPUSCULAR HEMOGLOBIN 27.9 pg (27.0-33.0); MEAN CORPUSCULAR HGB CONC 32.5 g/dL (32.0-36.0); MEAN CORPUSCULAR VOLUME 85.7 fL (79-99); MONOCYTES # (AUTO) 0.1 K/uL (0.1-1.0); MONOCYTES % (AUTO) 0.8 % (3.0-13.0); NEUTROPHILS # (AUTO) 11.9 K/uL (1.8-7.7); NEUTROPHILS % (AUTO) 91.8 % (40.0-77.0); PLATELET COUNT (AUTO) 313 K/uL (130-400); RED CELL DISTRIBUTION WIDTH 12.5 % (11.0-15.5); WHITE BLOOD COUNT (AUTO) 12.9 K/uL (4.8-10.8)
[2024-04-28 05:45] LABS: MAGNESIUM 1.9 mg/dL (1.80-2.40); POTASSIUM 4.1 mmol/L (3.5-5.1)
[2024-04-28 05:53] LABS: WBC MORPHOLOGY CONSISTENT W/DIFF
[2024-04-28] MEDS: ENOXAPARIN SODIUM 30 MG/0.3 ML SQ SCH (09:31)
[2024-04-28 10:53] LABS: ABG BASE EXCESS -6.9 mmol/L (-2.0-3.0); ABG OXYGEN SATURATION 95.6 % (94.0-98.0); ABG PCO2 34 mmHg (32-45); ABG PH 7.337 (7.350-7.450); PO2, ARTERIAL BG 82.5 mmHg (83.0-108.0); VENT MODE, BG NC (ROOM AIR)
[2024-04-28] MEDS: cefTRIAXone 1G VIAL IVPB SCH (11:27)
[2024-04-28 11:54] LABS: INR 1.01 (0.85-1.15); PROTHROMBIN TIME 10.9 SEC (9.6-11.6)
[2024-04-28] MEDS: SODIUM BICARB 50MEQ 50ML VIAL IV STA (12:30)
[2024-04-28] MEDS: SODIUM BICARBONATE 650 MG TAB PO ONE (12:49)
[2024-04-28] MEDS: SODIUM BICARBONATE 650 MG TAB PO SCH (12:57)
[2024-04-28] MEDS: furoSEMIDE 40MG VIAL IV SCH (13:20)
[2024-04-28] MEDS ORDERED: IOHEXOL-350 75 ML VIAL IV ONE (14:37)
[2024-04-28] MEDS ORDERED: SODIUM BICARBONATE 650 MG TAB PO SCH (18:00)
[2024-04-28] MEDS: BUDESONIDE 0.5 MG/2 ML INH IH SCH (18:36)
[2024-04-29] VITALS (13 sets, daily range): BP systolic 122–135; BP diastolic 59–75; PULSE 64–80; RESP 16–21; TEMP 98.4–99; O2SAT 93–94
[2024-04-29] MEDS: LACTULOSE 20 GM/30 ML UDCUP PO PRN (00:45)
[2024-04-29 04:07] LABS: HEMATOCRIT 41.8 % (36-48); MEAN CORPUSCULAR HEMOGLOBIN 28.6 pg (27.0-33.0); MEAN CORPUSCULAR VOLUME 86.7 fL (79-99); RED BLOOD CELL COUNT(AUTO) 4.82 MIL/uL (4.00-5.50); RED CELL DISTRIBUTION WIDTH 12.7 % (11.0-15.5); WHITE BLOOD COUNT (AUTO) 20.8 K/uL (4.8-10.8)
[2024-04-29 04:25] LABS: CREATININE 2.2 mg/dL (0.5-1.0); POTASSIUM 3.6 mmol/L (3.5-5.1)
[2024-04-29] MEDS: Solu-medROL 40MG VIAL IVP SCH (17:51)
[2024-04-29] MEDS: DOXYCYCLINE 100MG+NS 250ML 250 ML IV SCH (22:54)
[2024-04-29] MEDS: CEFTRIAXONE 2GM VIAL IVPB SCH (22:54)
[2024-04-30] VITALS (12 sets, daily range): BP systolic 125–159; BP diastolic 68–91; PULSE 66–85; RESP 16–21; TEMP 97.7–98.9; O2SAT 93–97
[2024-04-30 04:35] LABS: CREATININE 2.2 mg/dL (0.5-1.0); HEMATOCRIT 40.8 % (36-48); MEAN CORPUSCULAR HEMOGLOBIN 28.2 pg (27.0-33.0); MEAN CORPUSCULAR HGB CONC 32.6 g/dL (32.0-36.0); MEAN CORPUSCULAR VOLUME 86.6 fL (79-99); POTASSIUM 3.5 mmol/L (3.5-5.1); RED BLOOD CELL COUNT(AUTO) 4.71 MIL/uL (4.00-5.50); RED CELL DISTRIBUTION WIDTH 12.6 % (11.0-15.5); WHITE BLOOD COUNT (AUTO) 17.4 K/uL (4.8-10.8)
[2024-05-01] VITALS (10 sets, daily range): BP systolic 154–165; BP diastolic 81–85; PULSE 64–96; RESP 18–21; TEMP 98–98.2; O2SAT 92–97
[2024-05-01 06:26] LABS: HEMATOCRIT 41.2 % (36-48); MEAN CORPUSCULAR HEMOGLOBIN 28.2 pg (27.0-33.0); MEAN CORPUSCULAR HGB CONC 33.3 g/dL (32.0-36.0); MEAN CORPUSCULAR VOLUME 84.8 fL (79-99); RED BLOOD CELL COUNT(AUTO) 4.86 MIL/uL (4.00-5.50); RED CELL DISTRIBUTION WIDTH 12.6 % (11.0-15.5); WHITE BLOOD COUNT (AUTO) 13.3 K/uL (4.8-10.8)
[2024-05-01 07:01] LABS: POTASSIUM 4.1 mmol/L (3.5-5.1)
[2024-05-01] MEDS ORDERED: METH4TAB3 PO (12:34)
== END 2024-05-01 17:00 | disposition home or self-care (01) | DRG 189 ==
LOC: EDH 08:14 → EDHIP 08:15 → 4CH 16:17 → 2DH 04-28 14:15 → 4CH 04-30 15:30
PROVIDERS: ADMIT Hospitalist; ATTEND Hospitalist
PROC: 02HV33Z Insertion of Infusion Device into Superior Vena Cava, Percutaneous Approach (ICD-10-PCS; principal; 2024-04-28)
PROC: B548ZZA Ultrasonography of Superior Vena Cava, Guidance (ICD-10-PCS; 2024-04-28)
DX: J96.01 Acute respiratory failure with hypoxia (principal); N17.9 Acute kidney failure, unspecified; J44.1 Chronic obstructive pulmonary disease with (acute) exacerbation; J44.0 Chronic obstructive pulmonary disease with (acute) lower respiratory infection; E87.20 Acidosis, unspecified; Z68.42 Body mass index [BMI] 45.0-49.9, adult; J84.10 Pulmonary fibrosis, unspecified; Z20.822 Contact with and (suspected) exposure to COVID-19; E66.01 Morbid (severe) obesity due to excess calories; E78.5 Hyperlipidemia, unspecified; I12.9 Hypertensive chronic kidney disease with stage 1 through stage 4 chronic kidney disease, or unspecified chronic kidney disease; N18.30 Chronic kidney disease, stage 3 unspecified; Z90.5 Acquired absence of kidney; Z98.891 History of uterine scar from previous surgery
CPT/HCPCS: 36415; 36556; 36600; 70490; 71045; 76536; 80048; 81001; 82435; 82550; 82803; 82947; 82948; 83605; 83735; 83880; 84132; 84295; 84443; 84484; 85018; 85025; 85027; 85610; 87635; 87804; 93005; 93970; 94060; 94640; 94664; 94760; 96372; 99291; C1894; G0378; J0456; J0696; J1650; J1815; J1940; J2919; J3490; Q9967